=== PATIENT | female | born 1980 ===

== ENCOUNTER 2017-04-04 21:53 | Emergency (ER) | payer MEDICAID ==
[2017-04-04 21:53] VITALS: BMI 53.1
[2017-04-04 23:02] VITALS: BP 138/72; PULSE 76; RESP 18; TEMP 98.2; O2SAT 98
--- NOTE | 2017-04-04 23:08 | ED PDOC ---
Arrival/HPI - General Chief Complaint: Female Genitourinary Time Seen by Provider: 04/04/17 23:03 Historian: Patient - History of Present Illness Narrative History of Present Illness (Text): 04/04/17 23:07 Magalis Martinez is a 37 year old female, whose past medical history includes asthma, hypertension, hypothyroidism, and varicose veins, who presents to the Emergency department complaining of vaginal discomfort. Patient states she began experiencing sharp pain to her perineum after having sexual intercourse tonight. Patient denies any urinary symptoms, vaginal bleeding, vaginal discharge, fever, chills, chest pain, nausea, vomiting, diarrhea, back pain, headache, or any other complaints. Time/Duration: Other (tonight) Symptom Onset: Gradual Symptom Course: Unchanged Activities at Onset: Light Context: Home Past Medical History - Provider Review Nursing Documentation Reviewed: Yes - Infectious Disease Hx of Infectious Diseases: None - Tetanus Immunization Tetanus Immunization: Unknown - Reproductive Menopause: No - Cardiac Hx Hypertension: Yes - Pulmonary Hx Asthma: Yes - Neurological Hx Neurological Disorder: Yes Other/Comment: Carpal Tunnel - HEENT Hx HEENT Disorder: No - Renal Hx Renal Disorder: Yes - Endocrine/Metabolic Hx Hypothyroidism: Yes Other/Comment: pt states she has thyroid cysts found last week 03/15/16 - Hematological/Oncological Hx Blood Disorders: No - Integumentary Hx Dermatological Disorder: No - Musculoskeletal/Rheumatological Hx Musculoskeletal Disorders: No - Gastrointestinal Hx Gastrointestinal Disorders: No - Genitourinary/Gynecological Hx Genitourinary Disorders: No - Psychiatric Hx Anxiety: Yes Hx Substance Use: Yes (marijuana) - Surgical History Hx Section: Yes Hx Cholecystectomy: Yes Hx Tonsillectomy: Yes Other/Comment: RENAL STENT - Anesthesia Hx Malignant Hyperthermia: No Family/Social History - Physician Review Nursing Documentation Reviewed: Yes Family/Social History: Unknown Family HX Smoking Status: Heavy Smoker > 10 Cigarettes Daily Hx Alcohol Use: No Hx Substance Use: Yes (marijuana) Substance used: roly Allergies/Home Meds Allergies/Adverse Reactions: Allergies iodine Allergy (Verified 05/19/16 07:12) RASH Iodine and Iodide Containing Produc Allergy (Verified 05/19/16 07:12) RASH shellfish derived Allergy (Verified 05/19/16 07:12) RASH Home Medications: Home Meds Medication Instructions Recorded Confirmed Levothyroxine Sodium [Unithroid] 25 mcg PO DAILY 02/25/16 05/19/16 Gabapentin [Neurontin] 300 mg PO BID 05/19/16 05/19/16 Review of Systems - Physician Review All systems were reviewed & negative as marked: Yes - Review of Systems Constitutional: Normal. absent: Fevers Eyes: Normal ENT: Normal Respiratory: Normal. absent: SOB, Cough Cardiovascular: Normal. absent: Chest Pain Gastrointestinal: Normal. absent: Abdominal Pain, Diarrhea, Nausea, Vomiting Genitourinary Female: Other (+pain after sex). absent: Dysuria, Frequency, Hematuria, Urine Output Changes Musculoskeletal: Normal. absent: Back Pain, Neck Pain Skin: Normal. absent: Rash Neurological: Normal. absent: Headache, Dizziness Endocrine: Normal Hemo/Lymphatic: Normal Psychiatric: Normal Physical Exam Vital Signs Reviewed: Yes Vital Signs Temp Pulse Resp BP Pulse Ox 04/04/17 23:01 98.2 F 76 18 138/72 98 Temperature: Afebrile Blood Pressure: Normal Pulse: Regular Respiratory Rate: Normal Appearance: Positive for: Well-Appearing, Non-Toxic, Comfortable Pain Distress: None Mental Status: Positive for: Alert and Oriented X 3 - Systems Exam Head: Present: Atraumatic, Normocephalic Pupils: Present: PERRL Extroacular Muscles: Present: EOMI Conjunctiva: Present: Normal Mouth: Present: Moist Mucous Membranes Neck: Present: Normal Range of Motion Respiratory/Chest: Present: Clear to Auscultation, Good Air Exchange. No: Respiratory Distress, Accessory Muscle Use Cardiovascular: Present: Regular Rate and Rhythm, Normal S1, S2. No: Murmurs Abdomen: Present: Normal Bowel Sounds. No: Tenderness, Distention, Peritoneal Signs Genitourinary/Pelvic Exam: Present: Normal External Genitalia, Cervical os Closed, Other (Posterior vaginal wall tenderness, EMT Blanca present as environmental tech). No: Vaginal Discharge, Vaginal Bleeding, Adenexal Tenderness, Adenexal Mass, Cervical Motion Tendernes Back: Present: Normal Inspection Upper Extremity: Present: Normal Inspection. No: Cyanosis, Edema Lower Extremity: Present: Normal Inspection. No: Edema Neurological: Present: GCS=15, CN II-XII Intact, Speech Normal Skin: Present: Warm, Dry, Normal Color. No: Rashes Psychiatric: Present: Alert, Oriented x 3, Normal Insight, Normal Concentration Medical Decision Making ED Course and Treatment: 04/04/17 23:08 Impression: 37 year old female complaining of vaginal discomfort after sexual intercourse tonight. Differential Diagnosis included but are not limited to: pelvic pain Plan: -- Labs -- UA -- Reassess and disposition Prior Visits: Notes and results from previous visits were reviewed. On 05/19/16, pt was seen in the Emergency department for right eyelid swelling. Pt was discharged home. Progress Notes: 04/05/17 02:01 Performed pelvic exam, EMT Blanca present as environmental tech. There is posterior vaginal wall tenderness, otherwise negative. CT Pelvis w/o contrast ordered, r/ o abscess. 04/05/17 04:16 On reevaluation the patient feels better and is in no acute distress. I have discussed the results and plan with the patient, who expresses understanding. Patient given the opportunity to ask question, all questions were answered and there is agreement with the plan to discharge the patient home. Patient is stable for discharge. Patient was instructed to follow up with physician/clinic in 1-2 days or return if symptoms persist/worsen or new concerning symptoms arise. - Lab Interpretations Lab Results: 04/04/17 23:25 04/04/17 23:25 Lab Results 04/04/17 23:25: Urine Color Yellow, Urine Appearance Clear, Urine pH 6.0, Ur Specific Eugene 1.020, Urine Protein Negative, Urine Glucose (UA) Negative, Urine Ketones Negative, Urine Blood Negative, Urine Nitrate Negative, Urine Bilirubin Negative, Urine Urobilinogen 0.2, Ur Leukocyte Esterase Negative, Urine HCG, Qual Negative 04/04/17 23:25: Sodium 140, Potassium 3.6, Chloride 106, Carbon Dioxide 25, Anion Gap 13, BUN 18, Creatinine 0.9, Est GFR ( Amer) > 60, Est GFR (Non- Af Amer) > 60, Random Glucose 90, Calcium 9.4, Total Bilirubin 0.4, AST 21, ALT 29, Alkaline Phosphatase 65, Total Protein 7.2, Albumin 3.9, Globulin 3.3, Albumin/Globulin Ratio 1.2 04/04/17 23:25: WBC 9.9, RBC 4.17, Hgb 12.2, Hct 36.9, MCV 88.5, MCH 29.3, MCHC 33.1, RDW 14.2, Plt Count 171, MPV 11.7 H, Gran % 61.8, Lymph % (Auto) 30.5, Dickinson % (Auto) 6.6 H, Eos % (Auto) 0.9 L, Baso % (Auto) 0.2, Gran # 6.11, Lymph # 3.0, Dickinson # 0.7 H, Eos # 0.1, Baso # 0.02 I have reviewed the lab results: Yes - RAD Interpretation Radiology Orders: 04/05/17 02:00 PELVIS W/O PO OR IV CONTRAST [CT] Stat - Medication Orders Current Medication Orders: Discontinued Medications Doxycycline Hyclate (Doryx) 100 mg PO STAT STA PRN Reason: Protocol Stop: 04/05/17 04:11 Last Admin: 04/05/17 04:22 Dose: 100 mg Ketorolac Tromethamine (Toradol) 30 mg IVP ONCE ONE Stop: 04/05/17 02:01 Last Admin: 04/05/17 02:29 Dose: 30 mg [facility] Pain Assessment Document 04/05/17 02:29 SC (Rec: 04/05/17 02:29 OK [id number]) Pain Reassessment Is this a pain reassessment? No Sleep Is patient sleeping during reassessment? No Presence of Pain Presence of Pain Yes Pain Scale Used Pain Scale Used Numeric Description Description Constant Intensity of Pain at present 8 IVP Administration Document 04/05/17 02:29 SC (Rec: 04/05/17 02:29 SC [id number]) Charges for Administration # of IVP Administrations 1 Re-Assess: [facility] Pain Assessment Document 04/05/17 03:29 SC (Rec: 04/05/17 04:17 OK [id number]) Pain Reassessment Is this a pain reassessment? Yes Sleep Is patient sleeping during reassessment? No Presence of Pain Presence of Pain No Pain Scale Used Pain Scale Used Numeric Description Intensity of Pain at present 0 - Scribe Statement The provider has reviewed the documentation as recorded by the Stew Harry Provider Scribe Attestation: All medical record entries made by the Scribe were at my direction and personally dictated by me. I have reviewed the chart and agree that the record accurately reflects my personal performance of the history, physical exam, medical decision making, and the department course for this patient. I have also personally directed, reviewed, and agree with the discharge instructions and disposition. Disposition/Present on Arrival - Present on Arrival Any Indicators Present on Arrival: No History of DVT/PE: No History of Uncontrolled Diabetes: Yes Urinary Catheter: No History of Decub. Ulcer: No History Surgical Site Infection Following: None - Disposition Have Diagnosis and Disposition been Completed?: Yes Diagnosis: Pelvic pain Disposition: HOME/ ROUTINE Disposition Time: 04:15 Condition: GOOD Discharge Instructions (ExitCare): Pelvic Pain (ED) Prescriptions: Doxycycline Hyclate 100 mg PO BID #20 capsule Referrals: Ralph Muniz MD [Primary Care Provider] - Follow up with primary Forms: [employer] ([place])
[2017-04-04 23:29] LABS: BASO # 0.02 K/mm3 (0.0-2.0); BASO % 0.2 % (0.0-3.0); EOS # 0.1 (0.0-0.7); EOS % 0.9 % (1.5-5.0); GRAN # 6.11 (1.4-6.5); GRAN % 61.8 % (50.0-68.0); HEMATOCRIT 36.9 % (36.0-48.0); LYMPH % 30.5 % (22.0-35.0); MEAN CELL VOLUME 88.5 fl (80.0-105.0); MEAN CORPUSCULAR HEMOGLOBIN 29.3 pg (25.0-35.0); MEAN CORPUSCULAR HGB CONC 33.1 g/dl (31.0-37.0); MEAN PLATELET VOLUME 11.7 fl (7.0-11.0); MONO # 0.7 (0.1-0.6); MONO % 6.6 % (1.0-6.0); RED CELL DISTRIBUTION WIDTH 14.2 % (11.5-14.5); WHITE BLOOD COUNT 9.9 10^3/ul (4.5-11.0)
[2017-04-04 23:35] LABS: URINE BILIRUBIN NEGATIVE (NEGATIVE); URINE BLOOD NEGATIVE (NEGATIVE); URINE GLUCOSE (UA) NEGATIVE (NEGATIVE); URINE KETONE NEGATIVE (NEGATIVE); URINE LEUKOCYTE ESTERASE NEGATIVE Leu/uL (NEGATIVE); URINE PROTEIN NEGATIVE mg/dL (<30 mg/dL); URINE UROBILINOGEN 0.2 E.U./dL (<1 E.U./dL)
[2017-04-04 23:38] LABS: ALB/GLOB RATIO 1.2 (1.1-1.8); ALKALINE PHOSPHATASE 65 U/L (38-126); ALT/SGPT 29 U/L (7-56); AST/SGOT 21 U/L (14-36); BILIRUBIN,TOTAL 0.4 mg/dL (0.2-1.3); BLOOD UREA NITROGEN 18 mg/dL (7-21); CALCIUM 9.4 mg/dL (8.4-10.5); CARBON DIOXIDE 25 mmol/L (21-33); CHLORIDE 106 mmol/L (98-107); GFR AFRICAN-AMERICAN > 60; GLUCOSE,RANDOM 90 mg/dL (70-110); POTASSIUM 3.6 mmol/L (3.6-5.0); SODIUM 140 mmol/L (132-148); TOTAL PROTEIN 7.2 g/dL (5.8-8.3)
[2017-04-04 23:42] LABS: URINE APPEARANCE CLEAR (CLEAR); URINE COLOR YELLOW (YELLOW)
--- NOTE | 2017-04-05 03:51 | CT ---
EXAM: CT Pelvis Without Intravenous Contrast CLINICAL HISTORY: 37 years old, female; Pain; Pelvic pain; Additional info: R/O abscess TECHNIQUE: Axial computed tomography images of the pelvis without intravenous contrast. All CT scans at this facility use one or more dose reduction techniques, viz.: automated exposure control; ma/kV adjustment per patient size (including targeted exams where dose is matched to indication; i.e. head); or iterative reconstruction technique. Coronal and sagittal reformatted images were created and reviewed. COMPARISON: No relevant prior studies available. FINDINGS: Bowel: Unremarkable. No obstruction. No mucosal thickening. Appendix: Air-filled appendix is of normal-caliber. Intraperitoneal space: Phlegmonous change within the left hemipelvis. No discrete fluid collection is identified. Bladder: Bulky calcification at the base of the bladder. Reproductive: Unremarkable as visualized. Bones/joints: No acute fracture. No dislocation. Soft tissues: Fat-containing umbilical hernia. Vasculature: No lower abdominal aortic aneurysm. Lymph nodes: No pathologically enlarged lymph nodes. IMPRESSION: Phlegmonous change within the left hemipelvis, without a discrete fluid collection identified.
== END 2017-04-05 04:22 | disposition home or self-care (01) ==
LOC: ED 21:53
DX: E03.9 Hypothyroidism, unspecified (principal); I10 Essential (primary) hypertension; F17.210 Nicotine dependence, cigarettes, uncomplicated
CPT/HCPCS: 72192; 80053; 81003; 84703; 85025; 96374; 99281; J1885

== ENCOUNTER 2018-02-17 21:03 | Emergency (ER) | payer MEDICAID ==
[2018-02-17 21:15] VITALS: BMI 51.2
[2018-02-17 21:30] VITALS: O2SAT 97
[2018-02-17] MEDS ORDERED: Naproxen 550 mg Tab PO STA (21:48)
[2018-02-17] MEDS ORDERED: Tmp-Smz 800 mg-160 mg DS Tab PO STA (21:48)
--- NOTE | 2018-02-17 22:21 | ED PDOC ---
Arrival/HPI - General Historian: Patient <Shawanda Smith PA-C - Last Filed: 02/18/18 00:48> <Rey Cruz - Last Filed: 02/18/18 01:18> - General Chief Complaint: Abnormal Skin Integrity Time Seen by Provider: 02/17/18 21:48 - History of Present Illness Narrative History of Present Illness (Text): 02/17/18 22:20 37 yo F w/ pmh of hidradenitis suppurativa complains of a painful mass of gradually increasing size of the to the R axilla. Otherwise: (-) foreign body , (-) fever, (-) chills, (-) recent antibiotic use. (Shawanda Smith PA-C) Past Medical History - Infectious Disease Hx of Infectious Diseases: None - Tetanus Immunization Tetanus Immunization: Up to Date - Cardiac Hx Hypertension: Yes - Pulmonary Hx Asthma: Yes - Neurological Hx Neurological Disorder: Yes Other/Comment: Carpal Tunnel - HEENT Hx HEENT Disorder: No - Renal Hx Renal Disorder: Yes - Endocrine/Metabolic Hx Hypothyroidism: Yes Other/Comment: pt states she has thyroid cysts found last week 03/15/16 - Hematological/Oncological Hx Blood Disorders: No - Integumentary Hx Dermatological Disorder: Yes Other/Comment: Hidradenitis Suppurativa - Musculoskeletal/Rheumatological Hx Musculoskeletal Disorders: No - Gastrointestinal Hx Gastrointestinal Disorders: No - Genitourinary/Gynecological Hx Genitourinary Disorders: No - Psychiatric Hx Anxiety: Yes Hx Substance Use: Yes (marijuana) - Surgical History Hx Section: Yes Hx Cholecystectomy: Yes Hx Tonsillectomy: Yes Other/Comment: RENAL STENT - Anesthesia Hx Malignant Hyperthermia: No <Shawanda Smith PA-C - Last Filed: 02/18/18 00:48> Family/Social History Family/Social History: No Known Family HX Smoking Status: Heavy Smoker > 10 Cigarettes Daily Hx Alcohol Use: No Hx Substance Use: Yes (marijuana) Substance used: marijuana <Shawanda Smith PA-C - Last Filed: 02/18/18 00:48> Allergies/Home Meds <Shawanda Smith PA-C - Last Filed: 02/18/18 00:48> <Rey Cruz - Last Filed: 02/18/18 01:18> Allergies/Adverse Reactions: Allergies iodine Allergy (Verified 05/19/16 07:12) RASH Iodine and Iodide Containing Produc Allergy (Verified 05/19/16 07:12) RASH shellfish derived Allergy (Verified 05/19/16 07:12) RASH Home Medications: Home Meds Medication Instructions Recorded Confirmed Levothyroxine Sodium [Unithroid] 50 mcg PO DAILY 02/25/16 02/17/18 Adalimumab [Humira] 40 mg SC Q14D 02/17/18 02/17/18 Adalimumab [Humira] 80 mg SC Q14D 02/17/18 02/17/18 Albuterol HFA [Ventolin HFA 90 1 puff IH PRN PRN 02/17/18 02/17/18 mcg/actuation (8 g)] Spironolactone [Aldactone] 1 tab PO DAILY 02/17/18 02/17/18 Review of Systems - Review of Systems Constitutional: absent: Fatigue, Fevers Musculoskeletal: absent: Arthralgias, Back Pain, Neck Pain Skin: Abscess. absent: Rash, Pruritis, Skin Lesions <Shawanda Smith PA-C - Last Filed: 02/18/18 00:48> Physical Exam Temperature: Afebrile Blood Pressure: Normal Pulse: Tachycardic Respiratory Rate: Normal Appearance: Positive for: Well-Appearing, Non-Toxic, Comfortable Pain Distress: Mild Mental Status: Positive for: Alert and Oriented X 3 - Systems Exam Head: Present: Atraumatic, Normocephalic Pupils: Present: PERRL Extroacular Muscles: Present: EOMI Conjunctiva: Present: Normal Mouth: Present: Moist Mucous Membranes Neck: Present: Normal Range of Motion Upper Extremity: Present: Normal Inspection. No: Cyanosis, Edema Lower Extremity: Present: Normal Inspection. No: Edema Neurological: Present: GCS=15, CN II-XII Intact, Speech Normal Skin: Present: Warm, Dry, Normal Color, Abscess (+large erythematous tender fluctuant abscess to the R axilla measurine ~5 cm in diameter). No: Rashes Psychiatric: Present: Alert, Oriented x 3, Normal Insight, Normal Concentration <Shawanda Smith PA-C - Last Filed: 02/18/18 00:48> Vital Signs Temp Pulse Resp BP Pulse Ox 02/17/18 21:03 98.4 F 101 H 18 129/75 97 Medical Decision Making <Shawanda Smith PA-C - Last Filed: 02/18/18 00:48> <Rey Cruz - Last Filed: 02/18/18 01:18> ED Course and Treatment: 02/17/18 22:17 Plan : - Naprosyn PO - Bactrim DS PO - Keflex PO - I&D 02/17/18 22:45 Advised to follow up with primary care physician after 2 days without fail for packing removal and wound check. Advised to take medication as prescribed. Return to the emergency room at any time for any new or worsening symptoms. Patient states she fully agrees with and understands discharge instructions. States that she agrees with the plan and disposition. Verbalized and repeated discharge instructions and plan. I have given the patient opportunity to ask any additional questions. (Shawanda Smith PA-C) - Medication Orders Current Medication Orders: Discontinued Medications Cephalexin Monohydrate (Keflex) 500 mg PO STAT STA PRN Reason: Protocol Stop: 02/17/18 21:49 Last Admin: 02/17/18 23:35 Dose: 500 mg Lidocaine/Epinephrine (Lidocaine 1%/Epinephrine 1:582255 30 Ml) 5 ml IJ STAT STA Stop: 02/17/18 22:29 Last Admin: 02/17/18 23:36 Dose: 5 ml Naproxen (Anaprox Ds) 550 mg PO ONCE STA Stop: 02/17/18 21:49 Last Admin: 02/17/18 23:35 Dose: 550 mg Trimethoprim/Sulfamethoxazole (Bactrim Ds Tab) 2 tab PO STAT STA PRN Reason: Protocol Stop: 02/17/18 21:49 Last Admin: 02/17/18 23:35 Dose: 2 tab Procedures - Incision and Drainage Site: R axilla Blade Size: 11 I & D Procedure: betadine prep, sterile drapes applied, sterile dressing applied <Shawanda Smith PA-C - Last Filed: 02/18/18 00:48> <Rey Cruz - Last Filed: 02/18/18 01:18> - Incision and Drainage Progress: Prior to procedure "time out" was called in order to confirm the correct patient and procedure. Through aseptic technique, local anesthesia was administered to abscess, incision and drainage of abscess was performed by PA which produced purulent material. Wound packing was inserted to the wound. Clean dressing was applied. Patient tolerated the procedure well. (Shawanda Smith PA-C) - PA / AIR AND WATER TESTER / Resident Statement / has reviewed & agrees with the documentation as recorded. <Shawanda Smith PA-C - Last Filed: 02/18/18 00:48> - PA / AIR AND WATER TESTER / Resident Statement / has reviewed & agrees with the documentation as recorded. <Rey Cruz - Last Filed: 02/18/18 01:18> Disposition/Present on Arrival - Present on Arrival Any Indicators Present on Arrival: No History of DVT/PE: No History of Uncontrolled Diabetes: Yes Urinary Catheter: No History of Decub. Ulcer: No History Surgical Site Infection Following: None - Disposition Have Diagnosis and Disposition been Completed?: Yes Disposition Time: 23:00 Patient Plan: Discharge <Shawanda Smith PA-C - Last Filed: 02/18/18 00:48> <Rey Cruz - Last Filed: 02/18/18 01:18> - Disposition Diagnosis: Abscess Disposition: HOME/ ROUTINE Patient Problems: Current Active Problems Problem Status Onset Abscess Acute Condition: STABLE Discharge Instructions (ExitCare): Abscess Incision and Drainage Additional Instructions: Thank you for letting us take care of you today. You were treated for abscess. The emergency medical care you received today was directed at your acute symptoms. If you were prescribed any medication, please fill it and take as directed. It may take several days for your symptoms to resolve. Have packing removed after 2 days. Return to the Emergency Department if your symptoms worsen , do not improve, or if you have any other problems. Please contact your doctor in 2 days for re-evaluation and follow up. Bring any paperwork you were given at discharge with you along with any medications you are taking to your follow up visit. Our treatment cannot replace ongoing medical care by a primary care provider (PCP) outside of the emergency department. Thank you for allowing the [facility] team to be part of your care today. Prescriptions: Cephalexin [Keflex] 500 mg PO Q6 #28 capsule Naproxen 500 mg PO BID #30 tab Sulfamethoxazole/Trimethoprim [Bactrim DS 800 mg-160 mg] 2 tab PO BID #28 tab Referrals: Oswaldo Patino MD [Primary Care Provider] - Follow up with primary Forms: [employer] ([place]), WORK NOTE
[2018-02-17] MEDS ORDERED: Lidocaine 1%/Epinephrine 1:100000 30 ml vial IJ STA (22:28)
[2018-02-18 07:33] VITALS: BP 126/72; PULSE 92; RESP 16; TEMP 98.2
== END 2018-02-17 22:50 | disposition home or self-care (01) ==
LOC: ED 21:03
DX: L02.411 Cutaneous abscess of right axilla (principal)